=== PATIENT | female | born 1980 | race Caucasian/White ===

== ENCOUNTER 2017-07-23 23:08 | Inpatient (IN) | payer BC ==
[~2017-07-23] VITALS: Ht 165.1 cm; Wt 81.8 kg
[2017-07-23 23:22] VITALS: BP 135/80
[2017-07-24] VITALS (9 sets, daily range): BP systolic 106–160; BP diastolic 65–95
[2017-07-24 00:07] LABS: BASOPHIL (%) 0.2 % (0-1); EOSINOPHIL (%) 0.3 % (0-5); HEMATOCRIT 30.3 % (36.0-46.0); HEMOGLOBIN 9.5 G/DL (11.9-15.5); MCH 22.5 PG (29.0-34.0); MCHC 31.4 G/DL (30.0-36.0); MCV 71.8 FL (83-99); MONOCYTE (%) 7.3 % (3-12); MONOCYTE COUNT 0.9 K/uL (0-0.8); NEUTROPHIL (%) 74.2 % (45-76); NEUTROPHIL COUNT 8.8 K/uL (1.8-6.4); NRBC (%) 0.2 /100 WBC (0-0); PLATELET COUNT 258 K/uL (156-360); RBC DIS.WIDTH-CV 16.2 % (11.8-14.6); RBC DIS.WIDTH-SD 41.1 % (39-53); RED BLOOD COUNT 4.22 M/uL (3.80-5.20); WHITE BLOOD COUNT 11.8 K/uL (4.1-10.2)
[2017-07-24] MEDS ORDERED: IBUPROFEN800 MG PO (02:20)
[2017-07-24] MEDS ORDERED: PRENATAL TABLE1 EAC3 PO (04:45)
[2017-07-25 06:43] LABS: BASOPHIL (%) 0.4 % (0-1); BASOPHIL COUNT 0.1 K/uL (0-0.1); EOSINOPHIL (%) 0.9 % (0-5); EOSINOPHIL COUNT 0.1 K/uL (0-0.3); HEMATOCRIT 27.7 % (36.0-46.0); HEMOGLOBIN 8.4 G/DL (11.9-15.5); IMMATURE GRANULOCYTE (%) 0.8 % (0.0-0.7); LYMPHOCYTE (%) 21.9 % (15-42); LYMPHOCYTE COUNT 3.4 K/uL (1.0-2.8); MCH 22.2 PG (29.0-34.0); MCHC 30.3 G/DL (30.0-36.0); MCV 73.3 FL (83-99); MONOCYTE (%) 5.2 % (3-12); MONOCYTE COUNT 0.8 K/uL (0-0.8); NEUTROPHIL (%) 70.8 % (45-76); NEUTROPHIL COUNT 11.1 K/uL (1.8-6.4); PLATELET COUNT 220 K/uL (156-360); RBC DIS.WIDTH-CV 16.4 % (11.8-14.6); RBC DIS.WIDTH-SD 42.4 % (39-53); RED BLOOD COUNT 3.78 M/uL (3.80-5.20); WHITE BLOOD COUNT 15.6 K/uL (4.1-10.2)
[2017-07-25 07:20] VITALS: BP 100/56
[2017-07-25 10:44] VITALS: BP 125/75
[2017-07-25 14:44] VITALS: BP 115/69
[2017-07-26 07:34] VITALS: BP 124/68
== END 2017-07-26 13:30 | disposition home or self-care (01) | DRG 775 ==
LOC: LDRP-OP → 2WEST 23:09 → LDRP-OP 09-24 13:48
PROVIDERS: Midwife
DX: O70.1 Second degree perineal laceration during delivery (principal); O99.824 Streptococcus B carrier state complicating childbirth; O99.02 Anemia complicating childbirth; D62 Acute posthemorrhagic anemia; D50.9 Iron deficiency anemia, unspecified; Z3A.39 39 weeks gestation of pregnancy; Z37.0 Single live birth
CPT/HCPCS: 83030; 85025; 86850; 86900; 86901; C1755; G0378; J0595; J2270; J2540; J2790; J7120